=== PATIENT | male | born 1980 | race Caucasian/White ===

== ENCOUNTER → 2017-03-03 | Outpatient (CLI) | payer OTHER ==
--- NOTE | 2017-03-03 14:43 | DIAGNOSTIC IMAGING REPORT ---
CERVICAL WITHOUT CONTRAST HISTORY: 37-year-old male presents with acute cervical spine pain which radiates into the left upper extremity with numbness for 7 months. No reported injury. COMPARISON: None available. TECHNIQUE: Multiplanar multisequence MRI of the cervical spine was obtained without IV contrast. FINDINGS: The imaged posterior fossa structures appear to be within normal limits. Signal within the cord is normal. No significant soft tissue edema, focal bone marrow edema, fracture or marrow replacing process. Vertebral body heights are well-maintained and alignment is anatomic. The imaged upper thoracic structures appear to be within normal limits on the manufacturing lead images. C2-C3: Minimal uncovertebral spurring and facet arthrosis without significant central canal or neural foraminal narrowing. C3-C4: No central canal or foraminal narrowing. C4-C5: There is minimal central osteophytic spurring which slightly effaces the ventral thecal sac. No associated significant central canal or foraminal narrowing. C5-C6: No central canal or foraminal narrowing. C6-C7: There is mild intervertebral disc space narrowing and left-sided facet arthrosis with minimal uncovertebral spurring. No significant central canal or foraminal narrowing. C7-T1: No central canal or foraminal narrowing. T1-T2 and T2-T3 appear to be within normal limits on the sagittal imaging alone. 8 x 5 mm T2 hyperintense ovoid circumscribed structure adjacent to the right T1-T2 neural foramen suggests a perineural root sleeve cyst. IMPRESSION: 1. MRI of the cervical spine demonstrates no significant degenerative changes, central canal or neuroforaminal narrowing. 2. 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 Electronically signed by: Omid Trinh 03/03/2017 2:42 PM Dictated Date/Time: 03/03/2017 2:32 PM
== END | disposition home or self-care (01) ==
LOC: C.OPENMRI 13:08
PROVIDERS: ATTEND Internal Medicine
DX: M54.2 Cervicalgia (principal); G89.29 Other chronic pain